=== PATIENT | male | born 1960 | race Caucasian/White ===

== ENCOUNTER → 2016-09-18 | Outpatient (REF) ==
--- NOTE | 2016-09-19 16:04 | REP ---
LUMBAR SPINE SERIES LIMITED STUDY, THREE VIEWS: HISTORY: Degenerative disc disease, disability. No comparison radiographs. FINDINGS: Lumbar vertebral body heights are preserved and alignment is normal. There is discogenic spurring with disc space narrowing at L4-5 and to a lesser extent at L3-4 on the lumbar spine. Degenerative disc disease is also noted in the lower thoracic spine at T11-12. Other disc spaces are maintained. Vascular calcification is seen in a mildly ectatic abdominal aorta. Distal aorta measures 3.5 cm in anteroposterior span on lateral radiograph. I can not completely exclude a small distal abdominal aortic aneurysm. Pedicles and posterior elements are intact. There is some osteoarthritic facet hypertrophy bilaterally at L4-5 and to a lesser extent at L5-S1. Sacrum and SI joints are intact. Psoas margins are symmetric. IMPRESSION: 1. Possible 3 cm distal aortic aneurysm. Consider ultrasound of the aorta. 2. Degenerative disc disease and osteoarthritic facet disease at L4-5 bilaterally. Degenerative disc changes are also noted at L3-4 and T11-12. Signed by Robert Valdez MD 09/19/2016 06:01 P
== END | disposition home or self-care (01) ==
LOC: M SMT 14:57
PROVIDERS: ATTEND Internal Medicine
DX: Z02.71 Encounter for disability determination (principal)